=== PATIENT | male | born 1985 | race Caucasian/White ===

== ENCOUNTER 2025-01-04 10:12 | Day surgery (SDC) | payer OTHER, BC ==
[~2025-01-04] VITALS: Ht 185.4 cm; Wt 114.1 kg
[2025-01-04] VITALS (12 sets, daily range): BP systolic 140–158; BP diastolic 65–102
[~2025-01-04 10:12] MED LIST: CLIN300 PO; CeFAZolin Sodium 2,000 MG in NS 100 ML IV SCH; Dexamethasone Sod Phos 10 MG/ML 1ML VIAL ONE; FEXO180; FentaNYL Citrate 50 MCG/ML 5 ML Injection ONE; HYDACE5 PO; Ketorolac Tromethamine 30mg Vial ONE; Lactated Ringer's 1,000 ML IV SCH; METO10 PO; OXYACE5T PO; Ondansetron HCl 2 MG / ML 2ML Vial ONE; Rocuronium Bromide 10 MG/ML 5ML Injection IV ONE; propofoL 0 ML IV ONE; propofoL 20 ML IV ONE
--- NOTE | 2025-01-04 10:54 | NUR ---
History, Chart, Medications and Allergies reviewed before start of procedure. Pre-Op teaching done. Pt verbalizes understanding. Patient confirms NPO status and agrees with scheduled surgery. PT BELONGINGS BAG GIVEN TO AT BS. PT REQUESTS TO LEAVE HAT ON HEAD UNTIL ROLLING BACK TO OR. PT WILL PLAN TO GIVE HAT TO WHEN ROLLING BACK.
[2025-01-04] MEDS ORDERED: Bupivacaine 0.5% HCl 5 MG/ML 30MLVIAL ONE (11:49)
[2025-01-04] MEDS ORDERED: FentaNYL Citrate 50 MCG/ML 2 ML Injection IV PRN (12:30)
[2025-01-04] MEDS ORDERED: Albuterol 2.5 MG/3 ML VIAL INH PRN (12:30)
[2025-01-04] MEDS ORDERED: Dexamethasone Sod Phos 10 MG/ML 1ML VIAL ONE (12:31)
[2025-01-04] MEDS ORDERED: propofoL 20 ML IV ONE (12:31)
[2025-01-04] MEDS ORDERED: Ketorolac Tromethamine 30mg Vial ONE (12:31)
[2025-01-04] MEDS ORDERED: FentaNYL Citrate 50 MCG/ML 5 ML Injection ONE (12:31)
[2025-01-04] MEDS ORDERED: Rocuronium Bromide 10 MG/ML 5ML Injection IV ONE (12:31)
[2025-01-04] MEDS ORDERED: Ondansetron HCl 2 MG / ML 2ML Vial ONE (12:31)
[2025-01-04] MEDS ORDERED: HYDROmorphone HCl/Pf 1MG SYR IV PRN (12:35)
[2025-01-04] MEDS ORDERED: Atropine Sulfate 0.1 MG/ML 10ML SYR IV PRN (12:35)
[2025-01-04] MEDS ORDERED: Ondansetron HCl 2 MG / ML 2ML Vial IV PRN (12:35)
[2025-01-04] MEDS ORDERED: Morphine Sulfate 4 MG/1 ML Injection IV PRN (12:35)
[2025-01-04] MEDS ORDERED: Labetalol HCL 5 MG/ML 4ML Injection (Single Dose) IV PRN (12:35)
[2025-01-04] MEDS ORDERED: Metoclopramide HCl 5MG / ML 2ML Vial IV PRN (12:40)
[2025-01-04] MEDS ORDERED: Ketorolac Tromethamine 30mg Vial IV PRN (12:45)
[2025-01-04] MEDS ORDERED: OxyCODONE 5 mg/Acetamin 325 mg TABLET PO PRN (14:10)
--- NOTE | 2025-01-04 15:11 | NUR ---
1440 TO STEP FROM PACU SLEEPY, UMBILICAL DRESING WITH DESI AND OP SITE DRY AND INTACT 3 [id number] ON LEFT SIDE OF ABDOMEN WITH DERMA CARROLL D&I. BP SIGHT ELEVATED STATED "IT CAN BE NORMAL FOR HIM". PO CRACKERS AND WATER GIVEN TOLERATED WELL
== END 2025-01-04 15:37 | disposition home or self-care (01) ==
LOC: ORSCMMR 10:12 → ORD 11:30 → ORSCMMR 15:37
PROVIDERS: Surgery
PROC: 3E0T3BZ Introduction of Anesthetic Agent into Peripheral Nerves and Plexi, Percutaneous Approach (ICD-10-PCS; principal; 2025-01-04 11:30)
PROC: 8E0W4CZ Robotic Assisted Procedure of Trunk Region, Percutaneous Endoscopic Approach (ICD-10-PCS; principal; 2025-01-04 11:30)
PROC: 0WUF4JZ Supplement Abdominal Wall with Synthetic Substitute, Percutaneous Endoscopic Approach (ICD-10-PCS; principal; 2025-01-04 11:30)
DX: K42.0 Umbilical hernia with obstruction, without gangrene (principal); K66.0 Peritoneal adhesions (postprocedural) (postinfection); F17.220 Nicotine dependence, chewing tobacco, uncomplicated; E66.9 Obesity, unspecified; Z68.33 Body mass index [BMI] 33.0-33.9, adult
CPT/HCPCS: A9270; C1781; J0690; J1100; J1885; J2405; J2704; J3010; J7120